=== PATIENT | female | born 1975 ===

== ENCOUNTER 2022-12-28 22:01 | Emergency (ER) | payer OTHER ==
[~2022-12-28] VITALS: Ht 172.7 cm; Wt 150.1 kg
[2022-12-28 23:05] LABS: Source, Urine Clean Catch
[2022-12-28 23:18] LABS: Appearance, Urine Cloudy (Clear); Blood, Urine 4+ (Neg); Color, Urine Yellow (P-Yellow); Glucose Qualitative, Urine Neg (Neg); Ketones, Urine 1+ (Neg); Leukocyte Esterase, Urine 3+ (Neg); Nitrite, Urine Neg (Neg); Protein, Urine 3+ (Neg); Specific Gravity, Urine 1.015 (1.003-1.022); Urobilinogen, Urine 1+ (Normal)
[2022-12-28 23:29] LABS: Bilirubin, Urine 1+ (Neg)
[2022-12-28 23:35] LABS: Squamous Epithelial Cells Rare /hpf (Few); White Blood Cells, Urine TNTC /hpf (0-5)
[2022-12-28 23:36] LABS: Bacteria Many /hpf
[2022-12-28] MEDS ORDERED: CEPH500 PO (23:56)
[2022-12-29 00:01] VITALS: BP 134/59
== END 2022-12-29 06:11 | disposition home or self-care (01) ==
LOC: EDBD 22:01 → ER 22:01
PROVIDERS: Emergency Medicine
DX: N39.0 Urinary tract infection, site not specified (principal); I10 Essential (primary) hypertension; E11.9 Type 2 diabetes mellitus without complications
CPT/HCPCS: 81001; 87086; 99283; A9270

== ENCOUNTER → 2023-01-27 | Outpatient (CLI) | payer OTHER ==
[~2023-01-27] MED LIST: CEPH500 PO
== END ==
LOC: LAB 08:37 → LAB SHORT 08:37
DX: N76.0 Acute vaginitis (principal)
CPT/HCPCS: 87077; 87086; 87186